=== PATIENT | male | born 1980 | race Caucasian/White ===

== ENCOUNTER 2019-10-03 02:21 | Emergency (ER) | payer SELFPAY ==
[~2019-10-03] VITALS: Ht 170.2 cm; Wt 72.6 kg
[2019-10-03 02:21] VITALS: BP_SYST 156
--- NOTE | 2019-10-03 02:25 | NUR ---
EKG shown to Dr. Chaidez and pt cleared to remain in ER waiting room. Pt verbalizes improvement in symptoms, no C/P, no SOB, NAD at this time.
[2019-10-03 03:32] LABS: BARBITURATE, URINE NEGATIVE (NEG <=200); BENZODIAZEPINE, URINE NEGATIVE (NEG <=150); CANNABINOID, URINE NEGATIVE (NEG <=50); COCAINE, URINE POSITIVE (NEG <=150); METHAMPHETAMINES SCREEN,URINE NEGATIVE (NEG <=500); OPIATE, URINE NEGATIVE (NEG <=100); PHENCYCLIDINE SCREEN,URINE NEGATIVE (NEG <=25); UR TRICYCLIC ANTIDEPRESSANTS NEGATIVE (NEG <=300); URINE AMPHETAMINE NEGATIVE (NEG <=500); URINE METHADONE NEGATIVE (NEG <=200); URINE OXYCODONE SCREEN NEGATIVE (NEG <=100); URINE PROPOXYPHENE SCREEN NEGATIVE (NEG <=300)
--- NOTE | 2019-10-03 03:32 | NUR ---
Pt placed to ER bed 04, to gown, to brinell tester. Report given to MÓNICA Wayne.
--- NOTE | 2019-10-03 03:40 | NUR ---
Pt came to the ED for palpitations. Reports that he ws heavily drinking last night and smoking marijuana. He states that he was using cocaine 3 hours prior to coming into the ED. Denies SOB or chest pain. No other complaints/injuries noted. Will cont. to monitor.
--- NOTE | 2019-10-03 04:00 | NUR ---
ER at bedside examining patient.
[2019-10-03 04:41] LABS: BASOPHILS % (AUTO) 0.5 % (0.0-2.0); EOSINOPHILS % (AUTO) 0.2 % (0.0-4.0); HEMATOCRIT 44.6 % (36-54); HEMOGLOBIN 15.3 g/dL (14.0-18.0); LYMPHOCYTES # (AUTO) 1.5 K/uL (1.0-5.5); LYMPHOCYTES % (AUTO) 26.8 % (20.5-51.5); MEAN CORPUSCULAR HEMOGLOBIN 32 pg (27-31); MEAN CORPUSCULAR HGB CONC 34 % (32-36); MEAN CORPUSCULAR VOLUME 92 fL (79.0-98.0); MONOCYTES # (AUTO) 0.3 K/uL (0.0-1.0); MONOCYTES % (AUTO) 5.2 % (1.7-9.3); NEUTROPHILS # (AUTO) 3.9 K/uL (1.8-7.7); NEUTROPHILS % (AUTO) 67.3 % (40.0-70.0); PLATELET COUNT (AUTO) 234 K/uL (130-430); RED BLOOD CELL COUNT(AUTO) 4.86 MIL/uL (4.2-6.2); RED CELL DISTRIBUTION WIDTH 12.7 % (9.0-15.0); WHITE BLOOD COUNT (AUTO) 5.7 K/uL (4.8-10.8)
[2019-10-03 04:51] LABS: ANION GAP 12 (5-15); CALCIUM 8.4 mg/dL (8.4-11.0); CHLORIDE 102 mmol/L (98-107); CREATININE 0.72 mg/dL (0.55-1.30); GLUCOSE 113 mg/dL (70-99); POTASSIUM 3.8 mmol/L (3.5-5.1); SODIUM SERUM 139 mmol/L (136-145); UREA NITROGEN, BLOOD 7 mg/dL (8-21)
[2019-10-03 04:58] LABS: GFR AFRICAN AMERICAN 155 mL/min (>90)
[2019-10-03 05:00] LABS: ALANINE AMINOTRANSFERASE 47 U/L (12-78); ALBUMIN 3.7 g/dL (3.4-4.8); ALCOHOL, BLOOD 143 mg/dL (<10); ASPARTATE AMINOTRANSFERASE 30 U/L (10-37); TOTAL BILIRUBIN 0.5 mg/dL (0.0-1.0)
--- NOTE | 2019-10-03 05:43 | NUR ---
Asked pt if he has a ride and someone to pick him up. He states he does not. KORY GRAHAM made aware. Pt states, "I'll rest here for a few hours till I am clear to go on my own."
--- NOTE | 2019-10-03 06:10 | NUR ---
Pt resting comfortably in bed, no signs of acute distress. Will cont. to monitor.
--- NOTE | 2019-10-03 07:23 | NUR ---
Patient given written and verbal discharge instructions and verbalizes understanding. ER MD Dr. Chaidez discussed with patient the results and treatment provided. Patient in stable condition. ID arm band removed. Patient educated on pain management and to follow up with PMD. Pain Scale 0/10. Opportunity for questions provided and answered. Medication side effect fact sheet provided.
[2019-10-03 07:25] VITALS: BP_SYST 156
== END 2019-10-03 07:23 | disposition home or self-care (01) ==
LOC: SED 02:21
DX: R00.2 Palpitations (principal); Z88.1 Allergy status to other antibiotic agents
CPT/HCPCS: 36415; 80053; 80307; 84484; 85025; 93005; 99284; G0482

== ENCOUNTER 2024-06-10 17:51 | Emergency (ER) | payer SELFPAY ==
[~2024-06-10] VITALS: Ht 170.2 cm; Wt 70.3 kg
[2024-06-10 17:51] VITALS: BP_SYST 124; PULSE 108; RESP 19; TEMP 99.9; O2SAT 98
--- NOTE | 2024-06-10 17:51 | NUR ---
BROUGHT IN BY [facility] AND TRIAGED. DR MYLES AT BEDSIDE FOR EVALUATION UPON ARRIVAL. TRIAGED AND PER DR MYLES PT IS STABLE TO GO TO WAITING ROOM.
--- NOTE | 2024-06-10 18:01 | NUR ---
PT STATES HE IS HOMELESS AND HAS BEEN DRINKING ETOH ALL DAY IN THE HOT SUN. PT STATES HE FEELS LIKE HIS HEART IS RACING AND HE IS DIZZY.
--- NOTE | 2024-06-10 18:32 | NUR ---
PT ELOPED FROM ER WAITING
[2024-06-10] MEDS ORDERED: ONDANSETRON 4 MG ODT TAB PO ONE (18:45)
== END 2024-06-10 18:32 | disposition left against medical advice (07) ==
LOC: SED 17:51
DX: F10.129 Alcohol abuse with intoxication, unspecified (principal); R42 Dizziness and giddiness; R11.0 Nausea; F17.200 Nicotine dependence, unspecified, uncomplicated; Z88.1 Allergy status to other antibiotic agents; Y90.6 Blood alcohol level of 120-199 mg/100 ml
CPT/HCPCS: 99283